=== PATIENT | female | born 1995 | race Caucasian/White ===

== ENCOUNTER 2018-12-26 08:46 | Emergency (ER) | payer BC ==
[~2018-12-26] VITALS: Ht 177.8 cm; Wt 61.2 kg
--- NOTE | 2018-12-26 09:00 | NUR ---
patient seen by
--- NOTE | 2018-12-26 09:53 | NUR ---
Splint placed on right arm. Discharge instructions given along with prescription. patient has been discharged.
[2018-12-26 09:55] VITALS: BP 124/78
== END 2018-12-26 09:55 | disposition home or self-care (01) ==
LOC: ER 08:46
DX: S42.401A Unspecified fracture of lower end of right humerus, initial encounter for closed fracture (principal); S70.01XA Contusion of right hip, initial encounter; S00.83XA Contusion of other part of head, initial encounter; W05.2XXA Fall from non-moving motorized mobility scooter, initial encounter; Y93.89 Activity, other specified; Y92.89 Other specified places as the place of occurrence of the external cause; Y99.8 Other external cause status
CPT/HCPCS: 73080; A4663